=== PATIENT | male | born 1965 | race Caucasian/White ===

== ENCOUNTER 2019-08-07 11:34 | Emergency (ER) | payer SELFPAY ==
[2019-08-07] MEDS ORDERED: CLINDAMYCIN PHOS/D5W 900MG 900 MG/50 ML BAG IVPB ONE (11:48)
[2019-08-07] MEDS ORDERED: ACETAMINOPHEN 1,000 MG/100 ML BTL IVPB ONE (11:48)
--- NOTE | 2019-08-07 11:58 | Emergency Department Record ---
History of Present Illness - General Chief complaint: Dental Stated complaint: DENTAL PAIN Time Seen by Provider: 08/07/19 11:36 Source: Patient Mode of Arrival: Ambulatory Limitations: No limitations - History of Present Illness Initial comments: The patient is here due to R lower dental pain for 2 days with mild swelling. He denies any ST or difficulty swallowing. The patient also denies any FERNANDES, CP, SOB, or difficulty urinating. MD complaint: Tooth pain Onset/Timin -: Days(s) Severity scale (1-10): 7 Quality: Other Improves with: None Worsens with: None - Related Data Previous Rx's Medication Instructions Recorded Clindamycin HCl [Cleocin HCl] 300 mg PO QID #28 capsule 08/07/19 Lisinopril 10 mg PO DAILY #14 tab 08/07/19 Naproxen [Naprosyn] 500 mg PO BID #14 tablet. 08/07/19 Allergies Allergy/AdvReac Type Severity Reaction Status Date / Time amoxicillin Allergy RASH Verified 08/07/19 11:44 Travel Screening - Travel/Exposure Within Last 30 Days Have you traveled within the last 30 days?: No - Travel/Exposure Within Last Year Have you traveled outside the [place] in the last year?: No - Additonal Travel Details Have you been exposed to anyone with a communicable illness?: No - Travel Symptoms Symptom Screening: None Review of Systems Constitutional: Denies: Chills, Fever Eyes: Denies: Eye discharge ENT: Denies: Congestion Respiratory: Denies: Dyspnea Cardiovascular: Denies: Chest pain Past Medical History - SOCIAL HISTORY Smoking Status: Current every day smoker Alcohol Use: Rare Drug Use: Rare Drug Use Detail:: Marijuana - RESPIRATORY Hx Respiratory Disorders: Yes Hx Pneumonia: Yes - CARDIOVASCULAR Hx Cardio Disorders: Yes Hx Hypertension: Yes - NEURO Hx Neuro Disorders: No - GI Hx GI Disorders: No - Hx Genitourinary Disorders: No - ENDOCRINE Hx Endocrine Disorders: No - MUSCULOSKELETAL Hx Musculoskeletal Disorders: No - PSYCH Hx Psych Problems: No - HEMATOLOGY/ONCOLOGY Hx Hematology/Oncology Disorders: No Family Medical History Any Significant Family History?: No Physical Exam - General General Appearance: Alert, Oriented x3, Cooperative, No acute distress - Head Head exam: Atraumatic, Normocephalic - Eye Eye exam: Normal appearance, PERRL, EOMI - ENT ENT exam: negative: Normal exam (There is mild swelling and tenderness to the R angle of the mandible.) Teeth exam: Dental caries, Dental tenderness # (R lower 3rd molar with partial fx'd tooth and impaction.). negative: Normal inspection Throat exam: Normal inspection. negative: Tonsillar erythema, Tonsillomegaly - Neck Neck exam: Normal inspection, Full ROM. negative: Lymphadenopathy, Tenderness - Respiratory Respiratory exam: Normal lung sounds bilaterally. negative: Respiratory distress - Cardiovascular Cardiovascular Exam: Regular rate, Normal rhythm, Normal heart sounds - GI/Abdominal GI/Abdominal exam: Soft, Normal bowel sounds. negative: Tenderness - Extremities Extremities exam: Normal inspection, Full ROM, Normal capillary refill. neg ative: Tenderness - Neurological Neurological exam: Alert. negative: Motor sensory deficit Course Vital Signs 08/07/19 08/07/19 11:36 11:45 Temperature 98.1 F Pulse Rate 97 H Respiratory 20 Rate Blood Pressure 182/141 Pulse Ox 100 - Reevaluation(s) Reevaluation #1: The patient is doing well at this time and denies any new complaints. I did discuss the dangerously elevated blood pressure with the patient and did recommend hospital admission for monitoring and to make sure the HTN is treated. The patient is refusing that plan and would like to go home. I did discuss the the fact that if the patient does not agree to hospital admission he could go home and have an ND, stroke, become disabled and even . The patient understands and accepts the risks and understands we cannot be held liable for NOT admitting him to the hospital and evaluating his BP further. 08/07/19 12:29 Medical Decision Making - Data Complexity MDM Data: Labs Ordered and/or Reviewed - Lab Data Result diagrams: 08/07/19 11:54 08/07/19 11:54 Disposition Disposition: Discharge Clinical Impression: Abscess, dental Hypertension Qualifiers: Hypertension type: unspecified Qualified Code(s): I10 - Essential (primary) hypertension Disposition: Home, Self-Care Condition: (2) Stable Instructions: Dental Abscess (ED) Additional Instructions: Please take the Clindamycin and Naprosyn as directed and start the Lisinopril. Please see your Dentist ANGELA and also a family doctor next week to recheck your blood pressure. Return to the ER for any worsening issues. Prescriptions: Clindamycin HCl [Cleocin HCl] 300 mg PO QID #28 capsule Lisinopril 10 mg PO DAILY #14 tab Naproxen [Naprosyn] 500 mg PO BID #14 tablet.dr Forms: Patient Portal Access Time of Disposition: 12:48 Quality - Quality Measures Quality Measures: N/A - Blood Pressure Screening View Details: Yes Does Patient Have Any of the Following: Active Dx of HTN Blood Pressure Classification: Hypertensive Reading Systolic Measurement: 182 Diastolic Measurement: 141 Screening for High Blood Pressure: Patient Exclusion, Hx of HTN [G9744]
[2019-08-07] MEDS ORDERED: CLINDAMYCIN 600MG/50ML PREMIX 600 MG/50 ML BAG IVPB ONE (11:59)
[2019-08-07 12:04] LABS: ABSOLUTE NEUTROPHIL COUNT 6.42; BASO % 0.2 % (0-6); EOS % 1.6 % (0-6); GRAN % 50.1 % (47-80); HEMATOCRIT 50.2 % (42.0-52.0); HEMOGLOBIN 16.7 gm/dl (14.0-18.0); LYMPH % 39.6 % (16-45); MEAN CELL VOLUME 88.4 fl (81-97); MEAN CORPUSCULAR HEMOGLOBIN 29.4 pg (27-33); MEAN CORPUSCULAR HGB CONC 33.3 g/dl (32-36); MEAN PLATELET VOLUME 10.2 fl (7.4-10.4); MONO % 8.5 % (0-9); PLATELET COUNT 307 K/uL (130-400); RED BLOOD COUNT 5.68 M/uL (4.40-5.70); RED CELL DISTRIBUTION WIDTH 13.5 % (11.5-14.5); WHITE BLOOD COUNT W/O DIFF 12.8 K/uL (4.2-12.2)
[2019-08-07 12:16] LABS: BLOOD UREA NITROGEN 11 mg/dL (6-20); CREATININE 0.9 mg/dL (0.7-1.2); EST GLOMERULAR FILTRATION RATE > 60 mL/min
[2019-08-07 12:17] LABS: TOTAL PROTEIN 7.6 g/dL (6.6-8.7)
[2019-08-07 12:19] LABS: GLUCOSE,RANDOM 116 mg/dL (74-109)
[2019-08-07 12:21] LABS: ALBUMIN 4.6 g/dL (4.0-5.0); ALKALINE PHOSPHATASE 76 U/L (40-129); ALT/SGPT 25 U/L (<41); AST/SGOT 15 U/L (10.0-50.0); BILIRUBIN,DIRECT 0.3 mg/dL (0-0.3)
== END 2019-08-07 12:55 | disposition home or self-care (01) ==
LOC: ER 11:34
DX: K04.7 Periapical abscess without sinus (principal); I10 Essential (primary) hypertension; F17.210 Nicotine dependence, cigarettes, uncomplicated
CPT/HCPCS: 80048; 80076; 85025; 96365; 96366; 96368; 99285